=== PATIENT | female | born 1985 | race Caucasian/White ===

== ENCOUNTER 2017-05-08 17:37 | Emergency (ER) | payer OTHER ==
[2017-05-08] MEDS ORDERED: SODIUM CHLORIDE 0.9% 1,000 ML IV STA (18:15)
--- NOTE | 2017-05-08 18:22 | ED ---
Female Urogenital HPI - General Chief complaint: Vaginal Bleeding Stated complaint: FEMALE , BLEEDING Time Seen by Provider: 05/08/17 17:46 Source: patient, RN notes reviewed Mode of arrival: ambulatory Limitations: no limitations - History of Present Illness Initial comments: This is a 32-year-old female who presents to the emergency department with chief complaint of vaginal bleeding. Patient states that she has not had a period for the last 4 months, since last January. She states that she did have Nexplanon control inserted at that time. She states that her LIQUID COMPOUNDER is Dr. Villatoro. Patient reports that she began bleeding yesterday and had to consistently change her tampons in the middle of the night. She states that she has been soaking through tampons every 2 hours and eventually just put on one of her son's diapers. Patient also reports lower abdominal cramping, chills and diarrhea. Denies any nausea or vomiting. Denies any concern for STDs. Last Menstrual Period: 01/20/17 - Related Data Home Medications Medication Instructions Recorded Confirmed No Known Home Medications [No 05/08/17 05/08/17 Known Home Medications] Allergies Allergy/AdvReac Type Severity Reaction Status Date / Time No Known Allergies Allergy Verified 05/08/17 18:25 Review of Systems ROS Statement: Those systems with pertinent positive or pertinent negative responses have been documented in the HPI. ROS Other: All systems not noted in ROS Statement are negative. Past Medical History Past Medical History: No Reported History History of Any Multi-Drug Resistant Organisms: None Reported Additional Past Surgical History / Comment(s): CERVICAL SCRAPING Past Psychological History: No Psychological Hx Reported Smoking Status: Current every day smoker Past Alcohol Use History: None Reported Past Drug Use History: Marijuana General Exam - General Exam Comments Initial Comments: General: Awake and alert, well-developed; in no apparent distress. HEENT: Head atraumatic, normocephalic. Pupils are equal, round and reactive to light. Extraocular movements intact. Oropharynx moist without erythema or exudate. Neck: Supple. Normal ROM. Cardiovascular: Regular rate and rhythm. No murmurs, rubs or gallops. Chest symmetrical. Respiratory: Lungs clear to auscultation bilaterally. No wheezes, rales or rhonchi. Normal respiratory effort with no use of accessory muscles. Abdomen: Soft, non-distended. Generalized tenderness of abdomen on palpation. No rigidity, rebound or guarding. Normal bowel sounds in all 4 quadrants. Musculoskeletal: Normal ROM, no tenderness bilateral upper and lower extremities. Ambulating normally. Skin: [place], warm and dry without rashes or lesions. Neurological: Alert and oriented x3. CN II-XII grossly intact. Speech is fluent and answers are appropriate. No focal neuro deficits. Psychiatric: Normal mood and affect. No overt signs of depression or anxiety noted. Limitations: no limitations External exam: Present: normal external exam. Absent: erythema, swelling, lesions Speculum exam: Present: normal speculum exam, vaginal bleeding. Absent: erythema, vaginal discharge, cervical discharge By manual exam: Present: normal by manual exam. Absent: cervical motion tenderness, adnexal tenderness, uterine enlargement, uterine tenderness Course Vital Signs 05/08/17 05/08/17 17:43 20:03 Temperature 97.7 F Pulse Rate 115 H 52 L Respiratory 16 18 Rate Blood Pressure 104/69 97/56 O2 Sat by Pulse 100 99 Oximetry Medical Decision Making - Medical Decision Making This is a 32-year-old female who presents to the emergency department with chief complaint of vaginal bleeding. Patient states that he she has not had an episode of bleeding since last January when she had the Nexplanon control placed. CBC, coags, CMP were within normal limits. UA revealed moderate blood and large amount of red blood cells. Urine hCG was negative. Transvaginal ultrasound revealed no evidence for any acute processes. Vital signs are stable and patient is in no acute distress. Patient is anxious for discharge home. She will be discharged with a diagnosis of breakthrough bleeding and is to follow-up with her LIQUID COMPOUNDER within the next 1-2 days. Patient is in agreement and voices understanding. All questions were answered. - Lab Data Result diagrams: 05/08/17 18:30 05/08/17 18:30 Lab Results 05/08/17 05/08/17 05/08/17 Range/Units 18:30 18:30 18:30 WBC 7.5 (3.8-10.6) k/uL RBC 4.48 (3.80-5.40) m/uL Hgb 13.6 (11.4-16.0) gm/dL Hct 41.0 (34.0-46.0) % MCV 91.6 (80.0-100.0) fL MCH 30.4 (25.0-35.0) pg MCHC 33.2 (31.0-37.0) g/dL RDW 13.0 (11.5-15.5) % Plt Count 291 (150-450) k/uL Neutrophils % 41 % Lymphocytes % 48 % Monocytes % 7 % Eosinophils % 1 % Basophils % 1 % Neutrophils # 3.1 (1.3-7.7) k/uL Lymphocytes # 3.6 (1.0-4.8) k/uL Monocytes # 0.5 (0-1.0) k/uL Eosinophils # 0.1 (0-0.7) k/uL Basophils # 0.0 (0-0.2) k/uL PT (9.0-12.0) sec INR (<1.2) APTT (22.0-30.0) sec Sodium 143 (137-145) mmol/L Potassium 4.1 (3.5-5.1) mmol/L Chloride 108 H (98-107) mmol/L Carbon Dioxide 26 (22-30) mmol/L Anion Gap 9 mmol/L BUN 16 (7-17) mg/dL Creatinine 0.59 (0.52-1.04) mg/dL Est GFR (MDRD) Af Amer >60 (>60 ml/min/1.73 sqM) Est GFR (MDRD) Non-Af >60 (>60 ml/min/1.73 sqM) Glucose 88 (74-99) mg/dL Calcium 9.5 (8.4-10.2) mg/dL Total Bilirubin 0.5 (0.2-1.3) mg/dL AST 24 (14-36) U/L ALT 16 (9-52) U/L Alkaline Phosphatase 47 (38-126) U/L Total Protein 6.6 (6.3-8.2) g/dL Albumin 4.1 (3.5-5.0) g/dL Urine Color Urine Appearance (Clear) Urine pH (5.0-8.0) Ur Specific [place] (1.001-1.035) Urine Protein (Negative) Urine Glucose (UA) (Negative) Urine Ketones (Negative) Urine Blood (Negative) Urine Nitrite (Negative) Urine Bilirubin (Negative) Urine Urobilinogen (<2.0) mg/dL Ur Leukocyte Esterase (Negative) Urine RBC (0-5) /hpf Ur Squamous Epith Cells (0-4) /hpf Amorphous Sediment (None) /hpf Urine Mucus (None) /hpf Urine HCG, Qual Not Detected (Not Detectd) 05/08/17 05/08/17 Range/Units 18:30 18:30 WBC (3.8-10.6) k/uL RBC (3.80-5.40) m/uL Hgb (11.4-16.0) gm/dL Hct (34.0-46.0) % MCV (80.0-100.0) fL MCH (25.0-35.0) pg MCHC (31.0-37.0) g/dL RDW (11.5-15.5) % Plt Count (150-450) k/uL Neutrophils % % Lymphocytes % % Monocytes % % Eosinophils % % Basophils % % Neutrophils # (1.3-7.7) k/uL Lymphocytes # (1.0-4.8) k/uL Monocytes # (0-1.0) k/uL Eosinophils # (0-0.7) k/uL Basophils # (0-0.2) k/uL PT 10.0 (9.0-12.0) sec INR 1.0 (<1.2) APTT 24.8 (22.0-30.0) sec Sodium (137-145) mmol/L Potassium (3.5-5.1) mmol/L Chloride (98-107) mmol/L Carbon Dioxide (22-30) mmol/L Anion Gap mmol/L BUN (7-17) mg/dL Creatinine (0.52-1.04) mg/dL Est GFR (MDRD) Af Amer (>60 ml/min/1.73 sqM) Est GFR (MDRD) Non-Af (>60 ml/min/1.73 sqM) Glucose (74-99) mg/dL Calcium (8.4-10.2) mg/dL Total Bilirubin (0.2-1.3) mg/dL AST (14-36) U/L ALT (9-52) U/L Alkaline Phosphatase (38-126) U/L Total Protein (6.3-8.2) g/dL Albumin (3.5-5.0) g/dL Urine Color Yellow Urine Appearance Turbid H (Clear) Urine pH 7.0 (5.0-8.0) Ur Specific [place] 1.019 (1.001-1.035) Urine Protein Trace H (Negative) Urine Glucose (UA) Negative (Negative) Urine Ketones Negative (Negative) Urine Blood Moderate H (Negative) Urine Nitrite Negative (Negative) Urine Bilirubin Negative (Negative) Urine Urobilinogen <2.0 (<2.0) mg/dL Ur Leukocyte Esterase Negative (Negative) Urine RBC >182 H (0-5) /hpf Ur Squamous Epith Cells 1 (0-4) /hpf Amorphous Sediment Moderate H (None) /hpf Urine Mucus Occasional H (None) /hpf Urine HCG, Qual (Not Detectd) - Radiology Data Radiology results: report reviewed Ultrasound transvaginal impression: No suspicious acute changes. Follicles on the bilateral ovaries. Disposition Clinical Impression: Breakthrough bleeding Disposition: HOME SELF-CARE Condition: Good Instructions: Dysfunctional Uterine Bleeding (ED) Additional Instructions: Please follow-up with Dr. Lemus within 1-2 days. Please follow up with primary care provider within 1-2 days. Return to emergency department if symptoms should worsen or any concerns arise. Referrals: Hayden Gaviria DO [Primary Care Provider] - 1-2 days Sarthak Lemus DO [Doctor of Osteopathic Medicine] - 1-2 days Time of Disposition: 21:00
[2017-05-08 18:41] LABS: Basophils % (A) 1 %; Eosinophils # (A) 0.1 k/uL (0-0.7); Eosinophils % (A) 1 %; HGB 13.6 gm/dL (11.4-16.0); Lymphocytes # (A) 3.6 k/uL (1.0-4.8); Lymphocytes % (A) 48 %; MCH 30.4 pg (25.0-35.0); MCHC 33.2 g/dL (31.0-37.0); MCV 91.6 fL (80.0-100.0); Mean Platelet Volume 7.2; Monocytes # (A) 0.5 k/uL (0-1.0); Monocytes % (A) 7 %; Neutrophils # (A) 3.1 k/uL (1.3-7.7); Neutrophils % (A) 41 %; Platelet Count 291 k/uL (150-450); RBC 4.48 m/uL (3.80-5.40); WBC 7.5 k/uL (3.8-10.6)
[2017-05-08 18:49] LABS: Amorphous Sediment,Urine Moderate /hpf; Appearance,Urine Turbid (Clear); Bilirubin,Urine Negative (Negative); Blood,Urine Moderate (Negative); Color,Urine Yellow; Glucose,Urine (UA) Negative (Negative); Ketones,Urine Negative (Negative); Leukocyte Esterase,Urine Negative (Negative); Mucus,Urine Occasional /hpf; Partial Thromboplastin Time 24.8 sec (22.0-30.0); Protein,Urine Trace (Negative); RBC,Urine >182 /hpf (0-5); Specific Gravity,Urine 1.019 (1.001-1.035); Squamous Epithelial Cell,Urine 1 /hpf (0-4); Urobilinogen,Urine <2.0 mg/dL (<2.0)
[2017-05-08 18:52] LABS: ALT 16 U/L (9-52); AST 24 U/L (14-36); Albumin 4.1 g/dL (3.5-5.0); Alkaline Phosphatase 47 U/L (38-126); Anion Gap 9 mmol/L; Blood Urea Nitrogen 16 mg/dL (7-17); Calcium 9.5 mg/dL (8.4-10.2); Carbon Dioxide 26 mmol/L (22-30); Chloride 108 mmol/L (98-107); Glucose 88 mg/dL (74-99); Potassium 4.1 mmol/L (3.5-5.1); Sodium 143 mmol/L (137-145); Total Bilirubin 0.5 mg/dL (0.2-1.3); Total Protein 6.6 g/dL (6.3-8.2)
[2017-05-08] MEDS ORDERED: KETOROLAC 30 MG/ML 1 ML VIAL IVP STA (19:11)
--- NOTE | 2017-05-08 19:27 | XR ---
EXAMINATION TYPE: XR KUB DATE OF EXAM: 05/08/2017 COMPARISON: NONE INDICATION: Pain vaginal bleeding TECHNIQUE: Single view abdomen upright view FINDINGS: There is normal colonic bowel gas present. Some nonspecific small bowel gas may be within the mid abd omen. No suspicious air-fluid levels or differential air-fluid levels are present. No free air is pre sent. Psoas margins are not well visualized. No organomegaly is present. IMPRESSION: 1. Nonspecific abdomen.
--- NOTE | 2017-05-08 20:47 | US ---
EXAMINATION TYPE: US transvaginal DATE OF EXAM: 05/08/2017 COMPARISON: NONE CLINICAL HISTORY: Pain. TECHNIQUE: Transvaginal sonographic images were taken Date of LMP: 05/07/16 EXAM MEASUREMENTS: Uterus: 7.0 x 4.2 x 2.9 cm Endometrial Stripe: .22 cm Right Ovary: 3.6 x 1.7 x 1.7 cm Left Ovary: 3.4 x 2.1 x 2.1 cm 1. Uterus: Anteverted wnl 2. Endometrium: small amount of free fluid within 3. Right Ovary: wnl 4. Left Ovary: wnl Spectral, color and waveform doppler imaging shows good arterial and venous flow within the ovaries ; there is no evidence for ovarian torsion. 5. Bilateral Adnexa: right adnexa shows increased vascularity 6. Posterior cul-de-sac: wnl IMPRESSION: No suspicious acute changes. Follicles on the bilateral ovaries
[2017-05-08 20:57] VITALS: BP 112/64; PULSE 87; RESP 16; TEMP 98.3
== END 2017-05-08 21:12 | disposition home or self-care (01) ==
LOC: EC 17:37
DX: N93.9 Abnormal uterine and vaginal bleeding, unspecified (principal); F17.200 Nicotine dependence, unspecified, uncomplicated
CPT/HCPCS: 36415; 80053; 85025; 85610; 85730; 81001; 81025; 74018; 93975; 76830; 99284; 96374; 96361; J1885

== ENCOUNTER 2022-09-28 12:44 | Emergency (ER) | payer OTHER ==
[2022-09-28 13:24] VITALS: RESP 18
--- NOTE | 2022-09-28 14:03 | ED ---
General Adult HPI - General Chief complaint: Neuro Symptoms/Deficit Stated complaint: Left arm numbness Time Seen by Provider: 09/28/22 13:38 Source: patient, RN notes reviewed Mode of arrival: ambulatory - History of Present Illness Initial comments: 37-year-old female presents emergency Department with complaint of left arm tingling 4 days. She reports that there has been constant tingling in her left arm for the past 4 days. Nothing aggravates or alleviates it. She states that she sleeps on her arm frequently. She reports that she had a similar sensation in her right arm in the past but it did not last as long. She takes Suboxone. Denies chest pain, shortness breath, neck pain, fever, chills. Denies any other associated symptoms. - Related Data Home Medications Medication Instructions Recorded Confirmed Buprenorphine HCl/Naloxone HCl 0.5 film SL AC-SUPPER 09/28/22 09/28/22 [Suboxone 8 mg-2 mg Sl Film] Buprenorphine HCl/Naloxone HCl 1 film SL DAILY 09/28/22 09/28/22 [Suboxone 8 mg-2 mg Sl Film] Cholecalciferol (Vitamin D3) 125 mcg PO DAILY 09/28/22 09/28/22 [Vitamin D3 (125 MCG = 5,000 IU)] buPROPion HCL [buPROPion HCL XL] 450 mg PO DAILY 09/28/22 09/28/22 busPIRone HCL [Buspar] 30 mg PO BID 09/28/22 09/28/22 Allergies Allergy/AdvReac Type Severity Reaction Status Date / Time No Known Allergies Allergy Verified 09/28/22 15:01 Review of Systems ROS Statement: Those systems with pertinent positive or pertinent negative responses have been documented in the HPI. ROS Other: All systems not noted in ROS Statement are negative. Past Medical History Past Medical History: No Reported History History of Any Multi-Drug Resistant Organisms: None Reported Additional Past Surgical History / Comment(s): CERVICAL SCRAPING Past Psychological History: No Psychological Hx Reported Smoking Status: Current every day smoker Past Alcohol Use History: None Reported Past Drug Use History: Marijuana General Exam Limitations: no limitations General appearance: alert, in no apparent distress Head exam: Present: atraumatic, normocephalic, normal inspection Eye exam: Present: normal appearance, PERRL, EOMI. Absent: scleral icterus, conjunctival injection, periorbital swelling ENT exam: Present: normal exam, mucous membranes moist Neck exam: Present: normal inspection. Absent: tenderness, meningismus, lymphadenopathy Respiratory exam: Present: normal lung sounds bilaterally. Absent: respiratory distress, wheezes, rales, rhonchi, stridor Cardiovascular Exam: Present: regular rate, normal rhythm, normal heart sounds. Absent: systolic murmur, diastolic murmur, rubs, gallop, clicks GI/Abdominal exam: Present: soft, normal bowel sounds. Absent: distended, tenderness, guarding, rebound, rigid Extremities exam: Present: normal inspection, full ROM, normal capillary refill, other (Radial pulses, DP, PT pulses 2+, 5 out of 5 strength in upper and lower extremities.). Absent: tenderness, pedal edema, joint swelling, calf tenderness Back exam: Present: normal inspection Neurological exam: Present: alert, oriented X3, CN II-XII intact Psychiatric exam: Present: normal affect, normal mood Skin exam: Present: warm, dry, intact, normal color. Absent: rash Course Vital Signs 09/28/22 09/28/22 13:18 15:43 Temperature 98.9 F 98.7 F Pulse Rate 112 H 69 Respiratory 18 18 Rate Blood Pressure 122/80 125/5 O2 Sat by Pulse 97 98 Oximetry Medical Decision Making - Medical Decision Making Was pt. sent in by a medical professional or institution (ANÍBAL Larsen, SOLAR PROJECT COORDINATION SPECIALIST, urgent care, hospital, or jail...) When possible be specific @ -No Did you speak to anyone other than the patient for history (EMS, parent, family, police, friend...)? What history was obtained from this source @ -No Did you review nursing and triage notes (agree or disagree)? Why? @ -I reviewed and agree with nursing and triage notes Were old charts reviewed (outside hosp., previous admission, EMS record, old EKG, old radiological studies, urgent care reports/EKG's, jail records)? Report findings @ -No old charts were reviewed Differential Diagnosis (chest pain, altered mental status, abdominal pain women, abdominal pain men, vaginal bleeding, weakness, fever, dyspnea, syncope, headache, dizziness, GI bleed, back pain, seizure, CVA, palpatations, mental health, musculoskeletal)? @ -Differential Musculoskeletal Muscular strain, contusion, ligament sprain, fracture, arthritis, septic arthritis, bursitis, cellulitis, muscle spasm, nerve compression, DVT, arterial occlusion, herpes zoster, electrolyte abnormality, tumor.... This is not meant to be in all inclusive liste EKG interpreted by me (3pts min.). @ -None X-rays interpreted by me (1pt min.). @ -None done CT interpreted by me (1pt min.). @ -CT C-spine showed no acute fractures U/S interpreted by me (1pt. min.). @ -None done What testing was considered but not performed or refused? (CT, X-rays, U/S, labs)? Why? @ -None What meds were considered but not given or refused? Why? @ -None Did you discuss the management of the patient with other professionals (professionals i.e. , PA, SOLAR PROJECT COORDINATION SPECIALIST, lab, RT, psych nurse, social media strategist, thread weaver, teacher, corporation officer, keycase assembler)? Give summary @ -No Was smoking cessation discussed for >3mins.? @ -No Was critical care preformed (if so, how long)? @ -No Were there social determinants of health that impacted care today? How? (Homelessness, low income, unemployed, alcoholism, drug addiction, transportation, low edu. Level, literacy, decrease access to med. care, residential, rehab)? @ -No Was there de-escalation of care discussed even if they declined (Discuss DNR or withdrawal of care, Hospice)? DNR status @ -No What co-morbidities impacted this encounter? (DM, HTN, Smoking, COPD, CAD, Cance r, CVA, ARF, Chemo, Hep., AIDS, mental health diagnosis, sleep apnea, morbid obesity)? @ -None Was patient admitted / discharged? Hospital course, mention meds given and route, prescriptions, significant lab abnormalities, going to OR and other pertinent info. @ -Discharged. Patient presented to emergency department chief complaint of left arm tingling 4 days no alleviating or aggravating factors. CT of C-spine was obtained which showed no evidence for acute fracture, mild degenerative disc disease and uncovertebral joint hypertrophy at C5-C6. Patient advised of these findings and to follow-up with her primary care provider. Given orthopedic follow-up if patient does not have improvement. Patient stable at time of discharge. Case discussed my attending, Dr. Farias. Undiagnosed new problem with uncertain prognosis? @ -No Drug Therapy requiring intensive monitoring for toxicity (Heparin, Nitro, Insulin, Cardizem)? @ -No Were any procedures done? @ -No Diagnosis/symptom? @ -Radiculopathy Acute, or Chronic, or Acute on Chronic? @ -Acute Uncomplicated (without systemic symptoms) or Complicated (systemic symptoms)? @ -Uncomplicated Side effects of treatment? @ -No Exacerbation, Progression, or Severe Exacerbation? @ -No Poses a threat to life or bodily function? How? (Chest pain, [place], [place], pneumonia, PE, COPD, DKA, ARF, appy, cholecystitis, CVA, Diverticulitis, Homicidal, Suicidal, threat to staff... and all critical care pts) @ -No Disposition Clinical Impression: Radiculopathy affecting upper extremity Disposition: HOME SELF-CARE Condition: Stable Additional Instructions: Please follow up with your primary care provider. Return to the emergency department for new or worsening symptoms. Is patient prescribed a controlled substance at d/c from ED?: No Referrals: None,Stated [Primary Care Provider] - 1-2 days Devan Escobar DO [Doctor of Osteopathic Medicine] - 1-2 days Time of Disposition: 15:23
--- NOTE | 2022-09-28 14:42 | CT ---
EXAMINATION TYPE: CT cervical spine wo con CT DLP: 288.8 mGycm, Automated exposure control for dose reduction was used. DATE OF EXAM: 09/28/2022 2:37 PM COMPARISON: None. CLINICAL INDICATION:Female, 37 years old with history of lt arm tingling; PHH, left side arm tingling x4 days TECHNIQUE: Axial CT images from the skull base to the inferior aspect of T2 we obtained without intra venous contrast. Coronal and sagittal reformatted images were also reviewed. FINDINGS: Fracture: None. Osseous structures: Unremarkable Vertebral alignment: Mild retrolisthesis of C5 on C6. Spinal canal/Neural Foramina: Mild disc space narrowing at C5-C6 with broad-based disc bulge without significant central canal stenosis. Uncovertebral joint hypertrophy identified with suggested mild bi lateral neural foraminal stenosis. No evidence for significant neural foraminal stenosis. Neck soft tissues: Prevertebral soft tissues are within normal limits. Other: The airway is patent. The lung apices are clear. IMPRESSION: 1. No evidence of cervical spine fracture. 2. Mild degenerative disc disease and uncovertebral joint hypertrophy at C5-C6.
[2022-09-28 15:45] VITALS: BP 125/5; PULSE 69; TEMP 98.7
== END 2022-09-28 15:45 | disposition home or self-care (01) ==
LOC: EC 12:44
DX: M54.10 Radiculopathy, site unspecified (principal); F17.200 Nicotine dependence, unspecified, uncomplicated; F12.90 Cannabis use, unspecified, uncomplicated
CPT/HCPCS: 72125; 99284